=== PATIENT | female | born 1975 | race Caucasian/White ===

== ENCOUNTER 2017-03-02 18:40 | Emergency (ER) | payer SELFPAY ==
[~2017-03-02] VITALS: Ht 157.5 cm; Wt 138.8 kg
[2017-03-02 20:23] VITALS: BP 164/105
== END 2017-03-02 20:26 | disposition home or self-care (01) ==
LOC: ED 18:40
DX: M79.672 Pain in left foot (principal); R60.9 Edema, unspecified; M54.16 Radiculopathy, lumbar region; M54.40 Lumbago with sciatica, unspecified side; M79.604 Pain in right leg

== ENCOUNTER 2017-08-20 12:04 | Emergency (ER) | payer SELFPAY ==
[2017-08-20 13:58] VITALS: BP 135/87
== END 2017-08-20 13:58 | disposition home or self-care (01) ==
LOC: ED 12:04
DX: J02.9 Acute pharyngitis, unspecified (principal); J01.90 Acute sinusitis, unspecified; R03.0 Elevated blood-pressure reading, without diagnosis of hypertension

== ENCOUNTER 2017-11-02 21:49 | Emergency (ER) | payer SELFPAY | END 2017-11-03 00:01 | disposition left against medical advice (07) | LOC: ED 21:49 | DX: Z53.21 Procedure and treatment not carried out due to patient leaving prior to being seen by health care provider (principal) ==

== ENCOUNTER 2018-04-12 17:34 | Emergency (ER) | payer MEDICAID ==
[~2018-04-12] VITALS: Ht 157.5 cm; Wt 149.2 kg
[2018-04-12 17:37] VITALS: Ht 157.5 cm; Wt 149.2 kg
[2018-04-12 19:54] VITALS: BP 134/82
== END 2018-04-12 19:54 | disposition home or self-care (01) ==
LOC: ED 17:34
DX: T78.49XA Other allergy, initial encounter (principal); X58.XXXA Exposure to other specified factors, initial encounter
CPT/HCPCS: J2930; J3490; J7613; J7644

== ENCOUNTER 2018-07-02 07:44 | Emergency (ER) | payer SELFPAY ==
[~2018-07-02] VITALS: Ht 157.5 cm; Wt 145.1 kg
[2018-07-02 07:53] VITALS: Ht 157.5 cm; Wt 145.1 kg
[2018-07-02 09:05] LABS: BASOPHIL % 0.5 % (0-2); PLATELET COUNT 334 x10^3mcL (130-400)
[2018-07-02 09:11] LABS: RED CELL DISTRIBUTION WIDTH 14.6 % (11.5-14.5)
[2018-07-02 09:34] LABS: CALCIUM 8.3 mg/dL (8.5-10.1); CARBON DIOXIDE 24.4 mmol/L (21-32); CHLORIDE SERUM 105 mmol/L (98-107); CREATININE SERUM 0.7 mg/dL (0.6-1.0); GFR1 > 60 mL/min; GLUCOSE SERUM 95 mg/dL (74-106); POTASSIUM SERUM 3.6 mmol/L (3.5-5.1); SODIUM SERUM 135 mmol/L (136-145)
[2018-07-02 09:39] LABS: ALKALINE PHOSPHATASE 82 U/L (46-116); ALT/SGPT 18 U/L (14-59); AST/SGOT 11 U/L (15-37); BILIRUBIN TOTAL 0.54 mg/dL (0.20-1.00)
[2018-07-02 09:54] LABS: ALBUMIN 3.3 g/dL (3.4-5.0)
[2018-07-02 11:07] VITALS: BP 130/74
== END 2018-07-02 11:07 | disposition home or self-care (01) ==
LOC: ED 07:44
PROVIDERS: Emergency Medicine
DX: R60.0 Localized edema (principal); R51 Headache; I10 Essential (primary) hypertension
CPT/HCPCS: 36415; 83880; Q0092

== ENCOUNTER 2019-09-18 16:58 | Emergency (ER) | payer MEDICAID ==
[~2019-09-18] VITALS: Ht 170.2 cm; Wt 153.3 kg
[2019-09-18 17:06] VITALS: Ht 170.2 cm; Wt 153.3 kg
[2019-09-18 17:34] LABS: CALCIUM 8.5 mg/dL (8.5-10.1); CARBON DIOXIDE 28.3 mmol/L (21-32); CHLORIDE SERUM 103 mmol/L (98-107); CREATININE SERUM 0.8 mg/dL (0.6-1.0); GFR1 > 60 mL/min; GLUCOSE SERUM 105 mg/dL (74-106); POTASSIUM SERUM 4.1 mmol/L (3.5-5.1); SODIUM SERUM 139 mmol/L (136-145)
[2019-09-18 17:38] LABS: ALKALINE PHOSPHATASE 103 U/L (46-116); ALT/SGPT 17 U/L (14-59); AST/SGOT 9 U/L (15-37); BILIRUBIN TOTAL 0.46 mg/dL (0.20-1.00); LIPASE 153 IU/L (73-393); TOTAL PROTEIN, SERUM 7.2 g/dL (6.4-8.2)
[2019-09-18 17:41] LABS: ALBUMIN 3.3 g/dL (3.4-5.0)
[2019-09-18 17:45] LABS: BASOPHIL % 0.6 % (0-2); RED CELL DISTRIBUTION WIDTH 13.9 % (11.5-14.5)
[2019-09-18 17:48] LABS: PLATELET COUNT 401 x10^3mcL (130-400)
[2019-09-18 20:12] VITALS: BP 151/95
== END 2019-09-18 20:12 | disposition home or self-care (01) ==
LOC: ED 16:58
DX: R10.13 Epigastric pain (principal); M54.6 Pain in thoracic spine; Z98.51 Tubal ligation status; Z98.890 Other specified postprocedural states
CPT/HCPCS: 36415; J1885; Q0092

== ENCOUNTER 2020-01-09 19:53 | Emergency (ER) | payer SELFPAY ==
[~2020-01-09] VITALS: Ht 157.5 cm; Wt 153.8 kg
[2020-01-09 20:10] VITALS: BP 181/74; Ht 157.5 cm; Wt 153.8 kg
== END 2020-01-09 20:34 | disposition home or self-care (01) ==
LOC: ED 19:53
DX: B34.9 Viral infection, unspecified (principal); Z98.890 Other specified postprocedural states; Z98.51 Tubal ligation status

== ENCOUNTER 2020-01-11 18:17 | Emergency (ER) | payer SELFPAY ==
[~2020-01-11] VITALS: Ht 157.5 cm; Wt 152.4 kg
[2020-01-11 19:08] VITALS: Ht 157.5 cm; Wt 152.4 kg
[2020-01-11 23:03] VITALS: BP 154/105
== END 2020-01-11 23:03 | disposition home or self-care (01) ==
LOC: ED 18:17
DX: J03.90 Acute tonsillitis, unspecified (principal); Z98.890 Other specified postprocedural states
CPT/HCPCS: 86308; J0561; J1100